=== PATIENT | male | born 1955 | race Caucasian/White ===

== ENCOUNTER → 2023-12-24 | Outpatient (CLI) | payer MEDICARE, SELFPAY ==
[2023-12-24 13:08] LABS: AST(SGOT) 16 U/L (15-37); Alanine Aminotransfer ALT/SGPT 17 U/L (16-61); Albumin, Serum 3.8 g/dL (3.2-5.0); Alkaline Phosphatase 75 U/L (45-117); Anion Gap 2 (5-15); BUN 18 mg/dL (7-18); BUN/Creat Ratio 14.5 RATIO (10-20); CRP < 2.90 mg/L (0.0-3.0); Calcium,Total 9.3 mg/dL (8.5-10.1); Chloride 108 mmol/L (98-107); Creatinine, Serum 1.24 mg/dL (0.70-1.30); EST Glomerular Filtration Rate 61 mL/min (>60); Est Glom Filt Rate - Afr Amer 74 mL/min (>60); Globulin 3.9 g/dL (2.2-4.2); Glucose 108 mg/dL (74-106); Potassium 3.8 mmol/L (3.5-5.1); Protein, Total 7.7 g/dL (6.4-8.2); Sodium Level 139 mmol/L (136-145)
[2023-12-25 16:11] LABS: Endomysial Antibody IgA Negative (Negative); Immunoglobulin A 301 mg/dL (61-437); t-Transglutaminase IgA <2 U/mL (0-3)
== END | disposition home or self-care (01) ==
PROVIDERS: PCP Family Medicine; Referring Provider Internal Medicine Gastroenterology; Visit Provider Internal Medicine Gastroenterology
DX: R63.4 Abnormal weight loss (principal); R10.9 Unspecified abdominal pain
CPT/HCPCS: 36415; 80053; 82784; 83516; 86140; 86255

== ENCOUNTER → 2024-01-30 | Outpatient (CLI) | payer MEDICARE, SELFPAY ==
--- NOTE | 2024-01-30 12:27 | CT_ITS ---
INDICATION: WT LOSS/ABD PAIN/ABN ABD ON X-RAY EXAMINATION: CTA abdomen and pelvis - TECHNIQUE: Routine abdominal CT angiogram protocol was performed with IV contrast. MIP images provided. A radiation dose optimization technique was used for this scan. The protocol utilizes one or more of the following dose reduction techniques: automated exposure control, adjustment of mA and/or kV according to patient size, and/or use of iterative reconstruction technique. IV Contrast dosage and agent: 100 mL of Isovue-370. Radiation dose DLP 1085.06 mGy / cm. COMPARISON: None. FINDINGS: Lung bases: Normal. Liver: Normal. No bile ductal dilatation. Gallbladder: Normal. Spleen: Normal. Adrenal gland: Normal. Kidneys: Normal. No hydronephrosis or stone formation. Pancreas:Normal. Bowel gas pattern: Diverticula in the sigmoid colon without diverticulitis. Normal small bowel. Normal stomach. Appendix: Normal. Free air: None. Free fluid: None. Pelvis: Pelvic organs: Enlarged central lobe of the prostate gland causing indentation protrusion into the posterior urinary bladder wall. Bone survey: Mild degenerative anterolisthesis of L4 on L5. Mild degenerative retrolisthesis of L1 on L2, L2 on L3 and L3 on L4. No fractures. No lytic or blastic lesions. Adenopathy: No significant pathologic adenopathy detected. Other: None. Vascular: Normal abdominal aorta. Celiac artery: Normal. SMA: Normal. VALERIA: Normal. Left renal artery: High-grade stenosis at its origin. Right renal artery: Less than 50% stenosis at the origin due to calcified plaques. Right common iliac artery: No demonstrated narrowing. Right external iliac artery: Normal. Right internal iliac artery: No demonstrated narrowing. Minimal calcified plaques. Right common femoral artery: Normal. Right profunda femoris: Normal. Right proximal SFA: Normal. Left common iliac artery: Normal. Left external iliac artery: Normal. Left internal iliac artery: No demonstrated narrowing. Minimal nonocclusive calcified plaque in the distal left internal iliac artery. Left common femoral artery: Normal. Left profunda femoris and: Normal. Left proximal SFA: Normal. CT/CTA Abd/Pelvis W/WO Contrast IMPRESSION: 1. Enlarged central lobe of prostate gland causing indentation deformity of the posterior urinary bladder wall. This is at least BPH. Please correlate with PSA levels. 2. Sigmoid diverticulosis without diverticulitis. 3. High-grade stenosis of the left renal artery at its origin and less than 50% stenosis of the right renal artery at its origin. 4. No abdominal aortic aneurysm or dissection. Normal remaining branches of the abdominal aorta down to the common femoral arteries and proximal SFAs. 5. No suspicious mass or acute abnormality in the abdomen and pelvis. Electronically Signed: Renan Stanton MD at 12:40 EST ,
[2024-01-30 12:52] LABS: CREATININE FINGERSTICK < 1.0 mg/dL (0.70-1.30); EGFR FINGERSTICK > 60.0000 mL/min (>60)
== END | disposition home or self-care (01) ==
PROVIDERS: PCP Family Medicine; Referring Provider Internal Medicine Gastroenterology; Visit Provider Internal Medicine Gastroenterology
DX: R10.9 Unspecified abdominal pain (principal); R63.4 Abnormal weight loss; R93.5 Abnormal findings on diagnostic imaging of other abdominal regions, including retroperitoneum
CPT/HCPCS: 74174; Q9967

== ENCOUNTER → 2024-03-26 | Outpatient (CLI) | payer MEDICARE, SELFPAY ==
--- NOTE | 2024-03-26 07:44 | RDU_ITS ---
Reason For Study: Left Renal Artery Stenosis Right Renal Artery Left Renal Artery Right renal artery ostium 85.7/23.6 Left renal artery ostium 58.1/17.5 RSV/EDV. PSV/EDV. Right renal artery proximal Left renal artery proximal PSV/EDV 103.9/27.2 PSV/EDV. 62.5/21.9 . Right renal artery mid 87.9/42.5 Left renal artery mid 83.8/19.9 PSV/EDV. PSV/EDV . Right renal artery distal Left renal artery distal 86.0/34.2 116.7/34.5 PSV/EDV. PSV/EDV. Right RAR 1.6. Left RAR 1.2. Right Renal Parenchyma Left Renal Parenchyma Upper Pole Medula 18.8/4.2 PSV/EDV. Left upper pole medulla 26.1/8.6 Right upper pole medulla EDR 0.2 . PSV/EDV . Right upper pole medulla R.I. Left upper pole medulla EDR 0.3 . 0.78 . Left upper pole medulla R.I. 0.67 . Upper Daniel Cortx 16.2/6.1 PSV/EDV. UP Cortex 17.6/3.9 PSV/EDV. Right upper pole cortex EDR 0.37 . Left upper pole cortex EDR 0.2 . Right upper pole cortex R.I. 063 . Left upper pole cortex R.I. 0.78 . Right lower Pole medulla 18.4 Left lower Pole medulla 26.5/9.9 PSV/EDV . PSV/EDV . Right lower pole medulla EDR 0.3 . Left lower pole medulla EDR 0.4 . Right lower pole medulla R.I. Left lower pole medulla R.I. 0.62 . 0.69 . Lower Pole Cortx 18.4/6.4 PSV/EDV. Lower Pole Cortex 15.5/5.6 PSV/EDV. Left lower pole cortex EDR 0.35 . Right lower pole cortex EDR 0.4 . Left lower pole cortex R.I. 0.65 . Right lower pole cortex R.I. 0.64 . Left Renal Hilar Right Renal Hilar LT Hilar avg 70.3/23.6 PSV/EDV . Right Hilar avg 60.1/10.9 PSV/EDV. Left hilar acceleration time 0.04 Right hilar acceleration time 0.07 m/sec. m/sec. Left Renal Dimensions Right Renal Dimensions Left kidney size 10.02 cm . Right kidney size 9.34 cm . Left cortical dimension 1.53 cm . Right cortical dimension 1.25 cm . Aorta Proximal abdominal aorta 2.3 cm . Distal abdominal aorta 1.5 cm . Proximal abdominal aorta peak systolic velocity is 72.1 cm/sec . Distal abdominal aorta peak systolic velocity is 70.2 cm/sec . VL/Renal Artery Duplex Ultrasound Interpretation Summary Right renal artery patent with normal velocities and no evidence of stenosis. Left renal artery patent with normal velocities and no evidence of stenosis. Right renal vein patent. Left renal vein patent. Right kidney normal in size. Left kidney normal in size. Ordering Physician: Keenan Vazquez Referring Physician: Tayo Chandra MD Performed By: Heide Lawton RVT and Student
== END | disposition home or self-care (01) ==
PROVIDERS: PCP Family Medicine; Referring Provider Surgery Trauma Surgery; Visit Provider Surgery Trauma Surgery
DX: I70.1 Atherosclerosis of renal artery (principal)
CPT/HCPCS: 93975

== ENCOUNTER 2025-02-18 08:47 | Day surgery (SDC) | payer MEDICARE, SELFPAY ==
[2025-02-18] VITALS (10 sets, daily range): BP systolic 110–136; BP diastolic 73–89; PULSE 51–60; RESP 14–16; TEMP 36.5–36.8; O2SAT 97–100; BMI 26.0
--- NOTE | 2025-02-18 09:20 | PRE.ANES_ITS ---
ASA Classification* ASA Classification ASA Classification: 2 Assessment & Plan Anesthesia* Anesthesia Assessment Anesthesia Assessment: Discussed sedation and/or anesthesia options, risks, benefits, and alternatives with patient/parents/legal guardian/POA. Questions invited. The patient/parents/legal guardian/POA seems to understand and agrees to proceed with anesthesia plan. Reviewed the physical assessment, medical history, allergy history and patient home medications list prior to surgery/procedure/anesthetic and documented any changes. Performed airway and anesthesia risk assessments. Anesthesia Type Anesthesia Type: MAC Anesthesia Focused Assessment* Airway Assessment Mouth opens: >3 cm Mallampati Score: II Labs Anesthesia Preop lab: CBC CHEMISTRY Potassium, (3.5-5.1) 3.8 mmol/L 12/24/23, 10:59 Sodium, (136-145) 139 mmol/L 12/24/23, 10:59 BUN, (7-18) 18 mg/dL 12/24/23, 10:59 Creatinine, (0.70-1.30) 1.24 mg/dL 12/24/23, 10:59 Glucose, (74-106) 108 mg/dL H 12/24/23, 10:59 COAG Pre-Assessment Diagnosis/Proposed Procedure Planned Operative Procedure(s): CSCOPE Anesthesia History Anesthesia History - inflated pad buffer: Anesthesia History - inflated pad buffer Hx Hospitalization No 02/17/25 11:22 Any Problems With Anesthesia No 02/17/25 11:22 Cholinesterase deficiency No 02/17/25 11:22 You/Your Family Experience No 02/17/25 11:22 fever (hyperthermia) with Relationship Recent Exposure to Contagious Disease Does patient have nerve No 02/17/25 11:22 stimulator Patient instructed to have device shut off --Does patient have Pacemaker or ICD? When Was Last Pacemaker Check QUESTION #4 FULL TEXT: You/Your Family Experience fever (hyperthermia) with Anesthesia Last Oral Intake Last Oral intake: Last Oral Intake NPO since Meds taken in AM with sips of water? Meds patient instructed to take am of surgery PONV PONV - inflated pad buffer: PONV - inflated pad buffer Female No 02/17/25 11:22 HX of Motion Sickness Yes 02/17/25 11:22 HX of N/V After Surgery No 02/17/25 11:22 Non-Smoker Yes 02/17/25 11:22 Duration of Surgery greater No 02/17/25 11:22 than 60 minutes Number of Risk Factors 2 02/17/25 11:22 PONV Score Moderate Risk 02/17/25 11:22 Height & Weight Height & Weight: Anesthesia: Height & Weight Height 5 ft 8 in 01/20/25 13:18 Respiratory Assessment Respiratory Assessment - inflated pad buffer: Respiratory Tract Infection Hx - inflated pad buffer Hx Respiratory Tract Infection Yes: RESP COLD/TREATED AND 02/17/25 11:22 RESOLVED STOP Sleep Apnea STOP Sleep Apnea - inflated pad buffer: STOP Sleep Apnea - inflated pad buffer Hx Hypertension Yes: CONTROLLED WITH MED 02/17/25 11:22 Hx Sleep Apnea Yes 02/17/25 11:22 CPAP Yes 02/17/25 11:22 BIPAP No 02/17/25 11:22 Do you snore loudly (louder than talking or can be heard Do you often feel tired/ fatigued/ sleepy during daytime? Has anyone observed you stop breathing during sleep? STOP Results Positive 02/17/25 11:22 QUESTION #5 FULL TEXT : Do you snore loudly (louder than talking or can be heard through closed doors)? Tobacco Use History Tobacco Use History - inflated pad buffer: Tobacco Use History - inflated pad buffer Tobacco Use Smoking Status Never smoker 02/17/25 11:22 Hx Tobacco Use No 02/17/25 11:22 Years Smoking Packs Smoked per Day Smoking Cessation Date was within the last 15 years Hx Smoking Cessation Date Hx Smoking Cessation Counseling Hematologic Medial History Hematologic Hx - inflated pad buffer: Hematologic Medical Hx - overseamer Hx of Blood Transfusion No 02/17/25 11:22 Hx of Transfusion in last 3 No 02/17/25 11:22 Months Date of Last Transfusion (if within last 3 months) Ever experience any problems No 02/17/25 11:22 with transfusion(s)? Specify any problems Hx of Preganancy in last 3 N/A 02/17/25 11:22 Months Nurse Filling Out Transfusion DSCHRIBER 02/17/25 11:22 & Questions: Date: 02/17/25 02/17/25 11:22 Time: 11:02/17/25 11:22 Patient unable to answer at this time (ie. confused, unrespo /Reproduction History /Reproductive History - inflated pad buffer: /Reproductive Hx- inflated pad buffer Hx Now No 02/17/25 11:22 Gestational Age (in weeks): EDC: Hx Hx Para Hx Section SAB No 02/17/25 11:22 Does the father of the baby or his family experience fever w Father of the baby Malignant Hypertension history comment Active Medications Active Medications: Current Medications Generic Name Dose Route Start Last Admin Trade Name Freq PRN Reason Stop Dose Admin Lactated Ringer's 1,000 mls @ 15 mls/hr 02/18/25 09:15 IV .Q48H ROSE PFSH Medical History Cancer Gastric reflux CPAP (continuous positive airway pressure) dependence Non-smoker History of stress test Hypertension Renal artery stenosis Home Medications ?Medication ?Instructions ?Recorded ?Last Taken ?Type lisinopril 5 mg tablet 5 mg PO QDAY 02/25/24 Unknow n History multivitamin 1 tab PO QDAY 02/25/24 Unkno wn History zolpidem 10 mg tablet (Ambien) 10 mg PO QHS 02/25/24 U nknown History pantoprazole 20 mg tablet,delayed 20 mg PO QDAY Unknown History release Allergy/AdvReac Type Severity Reaction Status Date / Time amoxicillin (From Augmentin) Allergy Severe Rash Verified 02/18/25 09:18 cephalexin Allergy Severe Rash Verified 02/18/25 09:18 clavulanic acid (From Allergy Other Verified 02/18/25 09:18 Augmentin) Surgical History History of excision of lesion Social History Smoking Status: Never smoker Review of Systems (Anesthesia) ROS Narrative System reviewed and no additional complaints, except as documented.
[2025-02-18] MEDS: Lactated Ringers 1,000 ML 15 ML IV (09:28)
--- NOTE | 2025-02-18 10:00 | COLBX_PTH ---
PATIENT: BERLIN CHOUDHARY LOC: EN U#:[id number] AGE/SX: 69/M ROOM: RE02/18/[address]: Dr. Ronnie Apodaca DO : 1955 BED: DIS: 02/18/2025 SPEC #: [id number] RECD: 02/18/25 12:51 STATUS: LEONIDES YULIA #: [id number] KURT: 02/18/25 10:[address]: Ronnie Apodaca DEPT: SURGICAL PATHOLOGY RECD BY: Chai Tafoya ENTERED: 02/18/25 14:48 SP TYPE: COLON BX OTHR DR: Dr. Tayo Chandra MD Tissues: A - COLON BIOPSY B - Ileum, NOS Procedures: Surgery Specimen Level IV HEADER OPERATION: Colonoscopy with biopsy PRE-OP DIAGNOSIS: Right sided abdominal pain, loss of appetite, weight loss TISSUE SUBMITTED: A- Hepatic flexure polyp biopsy, B- Terminal ileum biopsy MICROSCOPIC DIAGNOSIS A. Large intestine, hepatic flexure polyp, polypectomy * Tubular adenoma B. Small intestine, terminal ileum, biopsy: * Small bowel mucosa with no pathologic change MICROSCOPIC DESCRIPTION Slides are reviewed. GROSS DESCRIPTION A. Received in fixative is one container labeled with the patient's name and designated Hepatic flexure polyp biopsy. The specimen consists of one irregular fragment of umana tissue that measures 0.4 cm. The specimen is totally submitted in one cassette. B. Received in fixative is one container labeled with the patient's name and designated Terminal ileum biopsy. The specimen consists of two irregular fragments of umana tissue that measure 0.5 and 0.6 cm. The specimen is totally submitted in one cassette. UT 02/18/2025 CPT:91113m1
--- NOTE | 2025-02-18 10:15 | HP.PCM_ITS ---
HPI - General General Date of Admission: 02/18/25 Date of Service: 02/18/25 Chief Complaint: Abdominal pain HPI Narrative BERLIN CHOUDHARY, is a 69 M who presents [Chief Complaint: establish care Details: - right sided ABD pain, intermittent, no radiation, aching, x8 months - unable to associate a trigger - feels sensitive - no change with PO intake or BM - reports having prior CT - EGD 12/2023 - Dr. Kuo - denies any prior colonoscopy - Cologuard negative per patient in the past year - reports a weight loss 10-15lbs in the past 8 months - denies any change in pain with movement - denies any injury - he is on pantoprazole 20mg daily has made no change in symptoms - pain does not prevent him from eating - reports a loss of appetite - denies any N/V or HB - has been drinking 1 ensure daily - he is a non-smoker - denies any EtOH, or marijuana use - 10/2023 CBC unremarkable - rates pain 3-07/08, better now that it was initially but no idea what made it better - no change in bowel habits - no blood in stools CTA 01/30/2024 1. Enlarged central lobe of prostate gland causing indentation deformity of the posterior urinary bladder wall. This is at least BPH. Please correlate with PSA levels. 2. Sigmoid diverticulosis without diverticulitis. 3. High-grade stenosis of the left renal artery at its origin and less than 50% stenosis of the right renal artery at its origin. 4. No abdominal aortic aneurysm or dissection. Normal remaining branches of the abdominal aorta down to the common femoral arteries and proximal SFAs. 5. No suspicious mass or acute abnormality in the abdomen and pelvis. The patient is a 69-year-old male presenting with intermittent right-sided abdominal pain. The discomfort is described as a sensitive, achy feeling and is superficial in nature. The onset of the pain was approximately eight months ago. The patient reports that the pain does not radiate and is not aggravated by eating or bowel movements. He denies any specific factors that noticeably alleviate or exacerbate the pain. The patient also notes an associated unintentional weight loss of 10-15 pounds over the past eight months, alongside a diminished appetite. He reports no heartburn, indigestion, nausea, vomiting, or changes in bowel habits, and denies any blood in stools. The patient's past diagnostic evaluations include a computed tomography (CT) scan of the abdomen and pelvis with and without contrast performed on February 01, 2024, revealing sigmoid colon diverticulosis without acute diverticulitis, an enlarged prostate, and high-grade stenosis of the left renal artery, with no abdominal aortic aneurysm or suspicious mass. An upper endoscopy performed by Dr. Gonsalez in December 2023 was negative for H. pylori and celiac disease, showing only mild chronic gastritis. The patient?s Cologuard test, conducted within the last year, returned negative, and blood work completed eight months ago indicated a normal hemoglobin level. He has been taking pantoprazole 20 mg daily without significant relief and uses Tylenol sporadically. There's no history of colonoscopy. No specific gastrointestinal interventions have been successful in managing the symptoms so far. Family history is negative for colon cancer, and his social history includes no tobacco, alcohol, or illicit drug use. ] FOR[facility] Medical History Cancer Gastric reflux CPAP (continuous positive airway pressure) dependence Non-smoker History of stress test Hypertension Renal artery stenosis Home Medications ?Medication ?Instructions ?Recorded ?Last Taken ?Type lisinopril 5 mg tablet 5 mg PO QDAY 02/25/24 Unknow n History multivitamin 1 tab PO QDAY 02/25/24 Unkno wn History zolpidem 10 mg tablet (Ambien) 10 mg PO QHS 02/25/24 U nknown History pantoprazole 20 mg tablet,delayed 20 mg PO QDAY Unknown History release Allergy/AdvReac Type Severity Reaction Status Date / Time amoxicillin (From Augmentin) Allergy Severe Rash Verified 02/18/25 09:18 cephalexin Allergy Severe Rash Verified 02/18/25 09:18 clavulanic acid (From Allergy Other Verified 02/18/25 09:18 Augmentin) Surgical History History of excision of lesion Social History Smoking Status: Never smoker ROS Constitutional Constitutional: Denies fatigue, fever(s), poor appetite, weight gain or weight loss Gastrointestinal Gastrointestinal: Denies belching, bloating, change in bowel habits, change in stool character, chewing difficulty, coffee ground emesis, constipation, cramping, diarrhea, dyspepsia, dysphagia, early satiety, excessive flatus, fecal incontinence, heartburn, hematemesis, hematochezia, hemorrhoids, loose stools, melena, nausea, odynophagia, rectal bleeding, tenesmus, vomiting or weight changes Vital Signs Vital Signs Vital Signs: 02/18/25 09:18 02/18/25 09:18 02/18/25 09:22 Temperature 97.7 F L Temperature Source Temporal Pulse Rate 60 Respiratory Rate 14 Respiratory Pattern Normal Blood Pressure 135/89 H Blood Pressure Mean 104 Blood Pressure Source Monitor Blood Pressure Position Semi-Fowlers Blood Pressure Location Left Arm Baseline BP 135/89 Pulse Ox 99 Oxygen Delivery Method Room Air Weight Weight: 181 lb 7.047 oz Body Mass Index (BMI) 26.0 Physical Exam Const alert, oriented x3, no apparent distress and healthy appearing General Appearance: cooperative GI normal to inspection, nondistended, normoactive bowel sounds, soft to palpation, non-tender and non-distended Percussion: normal to percussion Rectal Exam: deferred Assessment & Plan Assessment/Plan (1) Right sided abdominal pain: (2) Loss of appetite: (3) Weight loss: PLAN: Assessment and Plan Assessment and Plan (1) Right sided abdominal pain: Status: Acute (2) Weight loss: Status: Acute (3) Loss of appetite: Status: Acute Medications: New sodium,potassium,mag sulfates 17.5-3.13-1.6 gram (Suprep Bowel Prep Kit) as directed for split dose bowel prep 354 mL 0RF Plan 69-year-old male with a history of mild chronic gastritis, benign prostatic hyperplasia, and recent findings of diverticulosis and left renal artery stenosis presenting with intermittent right-sided abdominal pain. The primary concern is the potential gastrointestinal origin of this discomfort given the associated weight loss and loss of appetite. The abdominal CT scan did not reveal any acute abnormalities, suggesting the pain is not due to a structural lesion visible on imaging at that time. The negative Cologuard and history without family risk factors decrease the likelihood of colon cancer, though a colonoscopy is warranted for further evaluation. Superficial nature of the pain suggests a less structurally significant etiology, but the persistence and additional symptoms necessitate further investigation. Patient Instructions: Colonoscopy - SuPrep Continue pantoprazole 20 mg daily Trial of Tylenol and ibuprofen, alternating every 6 hours x 5 days. Not to exceed 2 g of Tylenol or 800 mg of ibuprofen in 24 hours. If pain resolves with this regimen, likely
--- NOTE | 2025-02-18 10:55 | OP.PROVAT_ITS ---
02/18/2025 Tayo Chandra Re : Colonoscopy procedure for Javier Chandra This procedure was performed on Tuesday, February 18, 2025. My impressions and recommendations are as follows: Impressions : - One 7 mm polyp at the hepatic flexure, removed with a jumbo cold forceps. Resected and retrieved. - Tortuous colon. - Mild inflammation was found in the ileum secondary to ileitis. Biopsied. - Diverticulosis in the recto-sigmoid colon and in the sigmoid colon. Recommendations : - Discharge patient to home. - Resume previous diet. - Continue present medications. - Await pathology results. - Repeat colonoscopy in 5 years for surveillance. My findings are described in the full procedure note, which is enclosed. If I can be of further assistance, please feel free to contact me at . Sincerely, Ronnie Apodaca, 02/18/2025 10:55:15 AM This report has been signed electronically.
--- NOTE | 2025-02-18 10:55 | OP.COLON_ITS ---
Patient Name: Javier Osborne Procedure Date: 02/18/2025 10:24 AM Date of : 1955 Age: 69 Procedure: Colonoscopy Indications: Abdominal pain in the right lower quadrant Providers: Ronnie Apodaca DO Referring MD: Tayo Chandra Medicines: Monitored Anesthesia Care Patient Profile: This is a 69 year old male. Refer to note in patient chart for documentation of history and physical. Last Colonoscopy: several years ago. Complications: No immediate complications. Procedure: Pre-Anesthesia Assessment: - Prior to the procedure, a History and Physical was performed, and patient medications and allergies were reviewed. The patient is competent. The risks and benefits of the procedure and the sedation options and risks were discussed with the patient. All questions were answered and informed consent was obtained. Patient identification and proposed procedure were verified by the physician in the pre-procedure area. Mental Status Examination: alert and oriented. Airway Examination: normal oropharyngeal airway and neck mobility. Respiratory Examination: clear to auscultation. CV Examination: normal. Prophylactic Antibiotics: The patient does not require prophylactic antibiotics. Prior Anticoagulants: The patient has taken no anticoagulant or antiplatelet agents except for NSAID medication. ASA Grade Assessment: II - A patient with mild systemic disease. After reviewing the risks and benefits, the patient was deemed in satisfactory condition to undergo the procedure. The anesthesia plan was to use monitored anesthesia care (MAC). Immediately prior to administration of medications, the patient was re-assessed for adequacy to receive sedatives. The heart rate, respiratory rate, oxygen saturations, blood pressure, adequacy of pulmonary ventilation, and response to care were monitored throughout the procedure. The physical status of the patient was re-assessed after the procedure. After I obtained informed consent, the scope was passed under direct vision. Throughout the procedure, the patient's blood pressure, pulse, and oxygen saturations were monitored continuously. The pediatric colonoscope was introduced through the anus and advanced to the terminal ileum. The colonoscopy was performed without difficulty. The patient tolerated the procedure well. The quality of the bowel preparation was adequate. The terminal ileum, ileocecal valve, appendiceal orifice, and rectum were photographed. Scope In: 10:35:40 AM Scope Withdrawal Time 0 hours 8 minutes 27 seconds Scope Out: 10:50:35 AM Total Procedure Duration Time 0 hours 14 minutes 55 seconds Findings: The perianal and digital rectal examinations were normal. A 7 mm polyp was found in the hepatic flexure. The polyp was sessile. The polyp was removed with a jumbo cold forceps. Resection and retrieval were complete. Verification of patient identification for the specimen was done. Estimated blood loss was minimal. The hepatic flexure was moderately tortuous. Localized mild inflammation was found in the terminal ileum. Biopsies were taken with a cold forceps for histology. Verification of patient identification for the specimen was done. Estimated blood loss was minimal. A few small-mouthed diverticula were found in the recto-sigmoid colon and sigmoid colon. Impression: - One 7 mm polyp at the hepatic flexure, removed with a jumbo cold forceps. Resected and retrieved. - Tortuous colon. - Mild inflammation was found in the ileum secondary to ileitis. Biopsied. - Diverticulosis in the recto-sigmoid colon and in the sigmoid colon. Recommendation: - Discharge patient to home. - Resume previous diet. - Continue present medications. - Await pathology results. - Repeat colonoscopy in 5 years for surveillance. Procedure Code(s): --- Professional --- 50622, Colonoscopy, flexible; with biopsy, single or multiple CPT copyright 2021 [employer]. All rights reserved. The codes documented in this report are preliminary and upon electric wirer review may be revised to meet current compliance requirements. Ronnie Apodaca DO 02/18/2025 10:55:15 AM This report has been signed electronically. Number of Addenda: 0 Note Initiated On: 02/18/2025 10:24 AM
--- NOTE | 2025-02-18 11:16 | PCM.POST.ANE ---
Anesthesia: Postop Eval I Current Vital Signs Temperature: 98 F Pulse Rate: 60 Blood Pressure: 115/73 Respiratory Rate: 16 Pulse Ox: 97 Oxygen Delivery Method: Room Air Assessment Airway patent: Yes Spontaneous unlabored respirations: Yes Mental status: Awake and Calm nausea: No Vomiting: No Anesthesia Complication: No Fluid Hydration Crystalloid volume administer (ml): 500 Total IV fluid infused: 500 Progress Note Anesthesia document: Postop Eval 1 completed: Yes
--- NOTE | 2025-02-18 12:19 | PCM.POSTANE2 ---
Anesthesia Postop Eval I Sum Postop Eval Completion status Anesthesia document: Postop Eval 1 completed: Yes Anesthesia Postop Eval I Summary Anesthesia Postop Eval I Summary: Anesthesia Postop Eval I: Assessment Summary Airway patent Yes 02/18/25 11:18 [email or web address] Spontaneous unlabored Yes 02/18/25 11:18 [email or web address] respirations Mental status Awake,Calm 02/18/25 11:18 [email or web address] nausea No 02/18/25 11:18 [email or web address] Vomiting No 02/18/25 11:18 [email or web address] Anesthesia Postop Eval I: Fluid Summary Crystalloid volume administer 500 02/18/25 11:18 [email or web address] (ml) Colloids volume administered ( ml) Blood Product volume administered (ml) Total IV fluid infused 500 02/18/25 11:18 [email or web address] Anesthesia Postop Eval I: Summary Notes Anesthesia Complication No 02/18/25 11:18 [email or web address] Anesthesia Complication Comment: Post-operative progress note Anesthesia: Postop Eval II Evaluation Mental status: Awake Pain Level: 0 nausea: No Vomiting: No
== END 2025-02-18 12:08 | disposition home or self-care (01) ==
LOC: EN 08:47 → AC 08:50
PROVIDERS: PCP Family Medicine; Referring Provider Family Medicine; Visit Provider Internal Medicine Gastroenterology
PROC: 0DJD8ZZ Inspection of Lower Intestinal Tract, Via Natural or Artificial Opening Endoscopic (ICD-10-PCS; CPT 45378; principal; 2025-02-18 09:55)
DX: R10.31 Right lower quadrant pain (principal); K57.30 Diverticulosis of large intestine without perforation or abscess without bleeding; R63.0 Anorexia; K21.9 Gastro-esophageal reflux disease without esophagitis; K63.5 Polyp of colon; I10 Essential (primary) hypertension; Z79.899 Other long term (current) drug therapy; R63.4 Abnormal weight loss; Z68.26 Body mass index [BMI] 26.0-26.9, adult; K63.89 Other specified diseases of intestine
CPT/HCPCS: 45380; 88305; J2405